=== PATIENT | female | born 1980 ===

== ENCOUNTER → 2017-07-06 | Outpatient (REF) | LOC: ZZSLMC 12:00 | PROVIDERS: ATTEND Surgery | DX: K29.50 Unspecified chronic gastritis without bleeding (principal) | CPT/HCPCS: 88305; 88344 ==

== ENCOUNTER → 2017-09-28 | Outpatient (REF) | LOC: ZZSLMC 12:00 | PROVIDERS: ATTEND Surgery | DX: K81.1 Chronic cholecystitis (principal) | CPT/HCPCS: 88304 ==